=== PATIENT | female | born 1980 | race African-American/Black ===

== ENCOUNTER 2017-07-22 19:29 | Emergency (ER) | payer MEDICAID ==
[2017-07-22] MEDS ORDERED: ACETAMINOPHEN 325 MG TABLET PO ONE (19:31)
[2017-07-22 19:58] VITALS: BP 132/76
--- NOTE | 2017-07-22 20:25 | ER Document Report ---
ED Fall - General Chief Complaint: Fall Injury Stated Complaint: FALL/HIP PAIN Time Seen by Provider: 07/22/17 20:04 Mode of Arrival: Ambulatory Information source: Patient TRAVEL OUTSIDE OF THE [place] IN LAST 30 DAYS: No - HPI Patient complains to provider of: LEFT HIP PAIN Occurred: Just prior to arrival Notes: Patient is here with complaints of left hip pain. The patient states that she went into 1 of the bathrooms here at the hospital noticed that there was some water on the floor. She left the bathroom and when she went back into the bathroom there was still water on the floor causing her to slip and fall landing on her left hip area. She has has pain since. She denies striking her head. No loss of consciousness. No blood thinners. No numbness, tingling, weakness. No bowel or bladder dysfunction. No abdominal pain. No nausea, vomiting diarrhea. Patient states that her pain is worse with movement and touching the area. Better with rest. - Related data Allergies/Adverse Reactions: ampicillin [Ampicillin] Allergy (Verified 06/23/15 07:21) Penicillins Allergy (Verified 06/23/15 07:21) Past Medical History - Social History Smoking Status: Current Every Day Smoker Chew tobacco use (# tins/day): No Frequency of alcohol use: Occasional Drug Abuse: None Family History: Reviewed & Not Pertinent Patient has suicidal ideation: No Patient has homicidal ideation: No Renal/ Medical History: Denies: Hx Peritoneal Dialysis Past Surgical History: Reports: Hx Tubal Ligation - Immunizations Hx Diphtheria, Pertussis, Tetanus Vaccination: Yes Review of Systems - Review of Systems -: Yes All other systems reviewed and negative Physical Exam - Vital signs Vitals: Temp Pulse Resp BP Pulse Ox 98 F 80 36 H 132/76 H 100 07/22/17 19:55 07/22/17 19:55 07/22/17 19:55 07/22/17 19:55 07/22/17 19:55 - Notes Notes: GENERAL: alert, cooperative, nontoxic, no distress. HEAD: normocephalic, atraumatic EYES: conjunctiva pink without discharge, no external redness or swelling. EARS: no external swelling, no external redness NOSE: atraumatic, no external swelling MOUTH/THROAT: mucous membranes moist and pink, posterior pharynx without erythema, swelling, exudate. No trismus or drooling. NECK: soft, supple, full range of motion, no meningismus. CHEST: no distress, lungs clear and equal throughout. No wheezing, rales, rhonchi. CARDIAC: regular rate and rhythm, no murmur, normal capillary refill, normal pulses. No peripheral edema noted. ABDOMEN: soft, nontender, no pusatile mass. BACK: No CVA tenderness. No midline tenderness step-offs or crepitus to the palpation of the lumbar spine. EXTREMITIES: full range of motion of all extremities. No redness, no swelling. Tenderness to palpation of the left posterior hip/pelvis. NEURO: alert and oriented A&O x 3, no focal deficits, full range of motion of all extremities. 5 out of 5 flexion and extension of the lower extremities bilaterally. Patellar and Achilles deep tendon reflexes are +2 bilaterally. Normal sensation with no saddle anesthesia. Patient can dorsiflex the great toes bilaterally. PYSCH: appropriate mood, affect. Patient is cooperative. SKIN: pink, warm, dry, no rash. Course - Re-evaluation Re-evalutation: 07/22/17 21:26 Patient is nontoxic appearing with stable vitals. Patient slipped and fell in the bathroom here injuring her left hip. She has a benign exam with no neurological abnormalities. No vascular abnormalities. She did not strike her head. She denies any other injuries. States that she walked into the bathroom noticed it was wet, told someone that it needed to be cleaned up. When she went back in she slipped and fell on the wet floor. No other injuries at this time. Patient has benign exam at this time. At this point the patient will be discharged home with a prescription for Naprosyn. Instructions apply ice to sore area. Follow-up if not better in 1 week, sooner for increasing pain, fever , numbness, tingling, weakness, bowel or bladder dysfunction, or for any further concerns. The patient is noted to have elevated blood pressure during today's emergency department visit. The patient was informed of this finding. The patient was instructed that this may be related to pre-hypertension and requires further evaluation with a primary care provider. The patient has no hypertensive symptoms at this time. The patient's emergency department workup and current diagnosis were explained to the patient and or family. Follow-up instructions were provided. Medications if prescribed were discussed. Instructions for when to return to the emergency department including specific worrisome symptoms were discussed with the patient and/or family. - Vital Signs Vital signs: Temp Pulse Resp BP Pulse Ox 98 F 80 36 H 132/76 H 100 07/22/17 19:55 07/22/17 19:55 07/22/17 19:55 07/22/17 19:55 07/22/17 19:55 - Diagnostic Test Radiology reviewed: Image reviewed, Reports reviewed - Left hip x-rays negative Discharge - Discharge Clinical Impression: Contusion of left hip Qualifiers: Encounter type: initial encounter Qualified Code(s): S70.02XA - Contusion of left hip, initial encounter Condition: Stable Disposition: HOME, SELF-CARE Instructions: Contusion ([facility]) Additional Instructions: Take medications as prescribed. Apply ice to sore area. Follow-up if not better in 1 week, sooner for increasing pain, fever, numbness, tingling, weakness, any further concerns. Your blood pressure was elevated during today's visit. Have this rechecked with your doctor. Prescriptions: Naproxen [Naprosyn] 500 mg PO BID #20 tablet Forms: Elevated Blood Pressure, Smoking Cessation Education, Return to Work
--- NOTE | 2017-07-22 21:24 | RADIOLOGY REPORT (SQ) ---
EXAM DESCRIPTION: HIP LEFT AP/LATERAL COMPLETED DATE/TIME: 07/22/2017 8:59 pm REASON FOR STUDY: SLIP AND FALL COMPARISON: None. NUMBER OF VIEWS: Two views. TECHNIQUE: AP pelvis and additional frog-leg view of the left hip. LIMITATIONS: None. FINDINGS: MINERALIZATION: Normal. LEFT HIP: No fracture or dislocation. No worrisome bone lesions. RIGHT HIP: No fracture or dislocation. No worrisome bone lesions. PUBIS AND ISCHIUM: No fracture. PELVIS: No fracture. SACRUM: No fracture or dislocation. No worrisome bone lesions. LOWER LUMBAR SPINE: No fracture or dislocation. No worrisome bone lesions. No significant disc disea se. SOFT TISSUES: No findings. OTHER: No other significant finding. IMPRESSION: NEGATIVE STUDY OF THE LEFT HIP AND PELVIS. NO RADIOGRAPHIC EVIDENCE OF ACUTE INJURY. TECHNICAL DOCUMENTATION: JOB ID: [id number] [employer]- All Rights Reserved Reading location - IP/workstation name: [email or web address]
== END 2017-07-22 21:52 | disposition home or self-care (01) ==
LOC: ER 19:29
DX: S70.02XA Contusion of left hip, initial encounter (principal); F17.200 Nicotine dependence, unspecified, uncomplicated; W01.0XXA Fall on same level from slipping, tripping and stumbling without subsequent striking against object, initial encounter; Y93.E8 Activity, other personal hygiene; Y92.231 Patient bathroom in hospital as the place of occurrence of the external cause; Z88.0 Allergy status to penicillin
CPT/HCPCS: 99283; 73502; J3490

== ENCOUNTER 2017-08-04 23:39 | Emergency (ER) | payer SELFPAY ==
[2017-08-04] MEDS ORDERED: HALOPERIDOL 5 MG TABLET PO ONE (23:44)
[2017-08-04] MEDS ORDERED: LORAZEPAM 1 MG TABLET PO ONE (23:44)
[2017-08-04] MEDS ORDERED: LORAZEPAM 1 MG TABLET ONE (23:53)
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
[2017-08-05 00:06] LABS: ABSOLUTE LYMPHOCYTES (AUTO) 2.2 10^3/uL (0.5-4.7); ABSOLUTE MONOCYTES (AUTO) 0.7 10^3/uL (0.1-1.4); ABSOLUTE NEUT (AUTO) 3.3 10^3/uL (1.7-8.2); BASOPHILS % (AUTO) 0.3 % (0-2); EOSINOPHILS % (AUTO) 0.5 % (0-6); HEMATOCRIT 40.7 % (36.0-47.0); HEMOGLOBIN 13.8 g/dL (12.0-15.5); LYMPHOCYTES % (AUTO) 35.1 % (13-45); MEAN CORPUSCULAR HEMOGLOBIN 30.1 pg (27.0-33.4); MEAN CORPUSCULAR HGB CONC 33.9 g/dL (32.0-36.0); MEAN CORPUSCULAR VOLUME 89 fl (80-97); MONOCYTES % (AUTO) 11.2 % (3-13); PLATELET COUNT 117 10^3/uL (150-450); RED BLOOD COUNT 4.59 10^6/uL (3.72-5.28); RED CELL DISTRIBUTION WIDTH 13.1 % (11.5-14.0); SEGMENTED NEUTROPHILS % (AUTO) 52.9 % (42-78); TOTAL CELLS COUNTED % (AUTO) 100 %; WHITE BLOOD COUNT 6.2 10^3/uL (4.0-10.5)
[2017-08-05 00:26] LABS: ALANINE AMINOTRANSFERASE 25 U/L (9-52); ALCOHOL 226 mg/dL (NONE DETECTED); ALKALINE PHOSPHATASE 52 U/L (38-126); ASPARTATE AMINO TRANSFERASE 22 U/L (14-36); BILIRUBIN,DIRECT 0.3 mg/dL (0.0-0.4); BILIRUBIN,TOTAL 0.3 mg/dL (0.2-1.3); BLOOD UREA NITROGEN 9 mg/dL (7-20); CALCIUM 9.7 mg/dL (8.4-10.2); GLUCOSE 134 mg/dL (75-110); POTASSIUM 3.7 mmol/L (3.6-5.0); TOTAL PROTEIN 8.5 g/dL (6.3-8.2)
[2017-08-05 00:31] LABS: AMORPHOUS SEDIMENT,URINE TRACE /HPF; APPEARANCE,URINE SLIGHTLY-CLOUDY; BILIRUBIN,URINE NEGATIVE (NEGATIVE); COLOR,URINE STRAW; GLUCOSE, URINE NEGATIVE (NEGATIVE); KETONES,URINE NEGATIVE (NEGATIVE); LEUKOCYTE ESTERASE,URINE NEGATIVE (NEGATIVE); NITRITE,URINE NEGATIVE (NEGATIVE); PROTEIN,URINE 30 mg/dL (NEGATIVE); URINE SPECIFIC GRAVITY 1.003; UROBILINOGEN,URINE NEGATIVE mg/dL (<2.0)
[2017-08-05 00:56] LABS: ACETAMINOPHEN < 10 ug/mL (10-30); SALICYLATE < 1.0 mg/dL (2.0-20.0)
[2017-08-05 00:57] LABS: URINE AMPHETAMINES SCREEN NEGATIVE; URINE BARBITURATES SCREEN NEGATIVE; URINE BENZODIAZEPINES SCREEN NEGATIVE; URINE COCAINE SCREEN UNCONFIRMED POSITIVE; URINE MARIJUANA (THC) SCREEN UNCONFIRMED POSITIVE; URINE METHADONE SCREEN NEGATIVE; URINE PHENCYCLIDINE SCREEN NEGATIVE
[2017-08-05 01:00] LABS: ANION GAP 21 (5-19); CARBON DIOXIDE 18 mmol/L (22-30); CHLORIDE 110 mmol/L (98-107); SODIUM 148.5 mmol/L (137-145)
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
[2017-08-05 11:54] VITALS: BP 117/80
--- NOTE | 2017-08-05 20:11 | EKG REPORT ---
SEVERITY:- ABNORMAL ECG - SINUS RHYTHM CONSIDER LEFT VENTRICULAR HYPERTROPHY : Confirmed by: Hector Stephens 05-Aug-2017 20:09:48
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
== END 2017-08-05 11:55 | disposition home or self-care (01) ==
LOC: ER 23:39
DX: F10.920 Alcohol use, unspecified with intoxication, uncomplicated (principal); F19.229 Other psychoactive substance dependence with intoxication, unspecified; R45.850 Homicidal ideations; Z88.0 Allergy status to penicillin; Z98.51 Tubal ligation status
CPT/HCPCS: 36415; 80053; 80307; 81001; 84703; 85025; 93005; 93010; 99284

== ENCOUNTER 2017-10-14 09:17 | Emergency (ER) | payer SELFPAY ==
[2017-10-14 09:33] VITALS: BP 127/82
--- NOTE | 2017-10-14 10:24 | ER Document Report ---
HPI - HPI Patient complains to provider of: Vaginal discharge with an odor since yesterday Onset: Just prior to arrival Pain Level: 5 Context: 36-year-old female complaining of right-sided abdominal pain from the pelvis to the right upper quadrant with right flank pain nausea for 1 month. She states she has urinary frequency and is having to get up at night to go to the bathroom. She started having a vaginal discharge with a foul odor yesterday, but has had vaginal itching for a couple weeks. She thought maybe her right labia was swollen. No intercourse for 3 months. History of endometriosis, trichomonos, and Chlamydia about 6 months ago. No fever or chills. Hx ITP , wants to know what her platelets are. Associated Symptoms: None Exacerbated by: Denies Relieved by: Denies - ROS ROS below otherwise negative: Yes Systems Reviewed and Negative: Yes All other systems reviewed and negative - REPRODUCTIVE Reproductive: DENIES: : Past Medical History - General Information source: Patient - Social History Smoking Status: Current Every Day Smoker Frequency of alcohol use: None Drug Abuse: None Family History: Reviewed & Not Pertinent Renal/ Medical History: Reports: Other - Endometriosis, chlamydia, trichomonas. Denies: Hx Peritoneal Dialysis Surgical Hx: Negative Past Surgical History: Reports: Hx Tubal Ligation - Immunizations Hx Diphtheria, Pertussis, Tetanus Vaccination: Yes Vertical Provider Document - CONSTITUTIONAL Agree With Documented VS: Yes Exam Limitations: No Limitations General Appearance: No Apparent Distress - INFECTION CONTROL TRAVEL OUTSIDE OF THE [place] IN LAST 30 DAYS: No - HEENT HEENT: Normal ENT Exam - NECK Neck: Supple - RESPIRATORY Respiratory: Breath Sounds Normal, No Respiratory Distress - CARDIOVASCULAR Cardiovascular: Regular Rate, Regular Rhythm - GI/ABDOMEN Gastrointestinal: Abdomen Soft, Abdomen Tender - Right pelvis to the right upper quadrant, no specific McBurney's point tenderness, - REPRODUCTIVE Female Genitalia: Normal Inspection - BACK Back: Normal Inspection, CVA Tenderness-Right - MUSCULOSKELETAL/EXTREMETIES Musculoskeletal/Extremeties: NIKUNJ PALENCIA - NEURO Level of Consciousness: Alert Course - Re-evaluation Re-evalutation: 10/14/17 trichomonas and BV on wet prep, offered to tx for possible gonorrhea and chlamydia pending cx and she wants to be treated. 10/14/17 pt called back advised her to have partner tx for trich, gc and chlam were negative. - Vital Signs Vital signs: Temp Pulse Resp BP Pulse Ox 97.5 F 73 16 127/82 H 73 L 10/14/17 09:31 10/14/17 09:31 10/14/17 09:31 10/14/17 09:31 10/14/17 09:31 - Laboratory Result Diagrams: 10/14/17 11:10 10/14/17 11:10 Discharge - Discharge Clinical Impression: Bacterial vaginosis, trichomonas, Abdominal pain, Chronic idiopathic thrombocytopenia Condition: Good Disposition: HOME, SELF-CARE Instructions: Abdominal Pain ([facility]), Azithromycin ([facility]), Rocephin ([facility]), Trichomonas Infection ([facility]), Vaginosis, Bacterial ([facility]) Additional Instructions: Metronidazole is for bacterial vaginosis and trichomonas, do not drink alcohol when you take this medication You were treated for possible gonorrhea with Rocephin and treated for possible chlamydia with azithromycin Do not douche Call me in 3 hours for the gonorrhea and Chlamydia test at [phone], as your sexual partner may need to be treated Return to the emergency room if this abdominal pain gets worse, new symptoms or fever vomiting or diarrhea Your platelet count is 90,000 which is mildly low. Do not take any Motrin or aspirin Prescriptions: Metronidazole 500 mg PO BID #14 tablet Forms: Return to Work
[2017-10-14] MEDS ORDERED: ACETAMINOPHEN 325 MG TABLET PO ONE (10:43)
[2017-10-14 11:05] LABS: APPEARANCE,URINE SLIGHTLY-CLOUDY; BILIRUBIN,URINE NEGATIVE (NEGATIVE); COLOR,URINE YELLOW; GLUCOSE, URINE NEGATIVE (NEGATIVE); KETONES,URINE NEGATIVE (NEGATIVE); LEUKOCYTE ESTERASE,URINE SMALL (NEGATIVE); NITRITE,URINE NEGATIVE (NEGATIVE); PROTEIN,URINE NEGATIVE (NEGATIVE)
[2017-10-14 11:20] LABS: BACTERIA (WET MOUNT) 4+ BACTERIA SEEN; EPITHELIALS (WET MOUNT) 4+ EPITHELIALS SEEN; RBCS (WET MOUNT) FEW RBCS SEEN; T.VAGINALIS (WET MOUNT) TRICHOMONAS SEEN; WBCS (WET MOUNT) FEW WBCS SEEN; YEAST (WET MOUNT) NO YEAST SEEN
[2017-10-14 11:39] LABS: ALANINE AMINOTRANSFERASE 21 U/L (9-52); ALKALINE PHOSPHATASE 46 U/L (38-126); ANION GAP 10 (5-19); ASPARTATE AMINO TRANSFERASE 16 U/L (14-36); BILIRUBIN,DIRECT 0.2 mg/dL (0.0-0.4); BILIRUBIN,TOTAL 0.5 mg/dL (0.2-1.3); BLOOD UREA NITROGEN 11 mg/dL (7-20); CALCIUM 8.6 mg/dL (8.4-10.2); CARBON DIOXIDE 27 mmol/L (22-30); CHLORIDE 106 mmol/L (98-107); GLUCOSE 91 mg/dL (75-110); POTASSIUM 3.7 mmol/L (3.6-5.0); SODIUM 142.9 mmol/L (137-145); TOTAL PROTEIN 7.2 g/dL (6.3-8.2)
[2017-10-14] MEDS ORDERED: CEFTRIAXONE INJ 250 MG VIAL IM ONE (11:41)
[2017-10-14] MEDS ORDERED: AZITHROMYCIN 250 MG TABLET PO ONE (11:41)
[2017-10-14] MEDS ORDERED: ONDANSETRON 4 MG TAB.RAPDIS PO ONE (11:41)
[2017-10-14] MEDS ORDERED: LIDOCAINE 1% INJ-PF (10 MG/ML) 30 ML SDV INJ ONE (11:42)
[2017-10-14 11:45] LABS: ABSOLUTE LYMPHOCYTES (AUTO) 1.4 10^3/uL (0.5-4.7); ABSOLUTE MONOCYTES (AUTO) 0.3 10^3/uL (0.1-1.4); ABSOLUTE NEUT (AUTO) 1.8 10^3/uL (1.7-8.2); BASOPHILS % (AUTO) 0.3 % (0-2); EOSINOPHILS % (AUTO) 1.4 % (0-6); HEMATOCRIT 39.1 % (36.0-47.0); HEMOGLOBIN 13.4 g/dL (12.0-15.5); LYMPHOCYTES % (AUTO) 39.4 % (13-45); MEAN CORPUSCULAR HEMOGLOBIN 30.1 pg (27.0-33.4); MEAN CORPUSCULAR HGB CONC 34.2 g/dL (32.0-36.0); MEAN CORPUSCULAR VOLUME 88 fl (80-97); MONOCYTES % (AUTO) 9.5 % (3-13); RED BLOOD COUNT 4.45 10^6/uL (3.72-5.28); RED CELL DISTRIBUTION WIDTH 13.1 % (11.5-14.0); SEGMENTED NEUTROPHILS % (AUTO) 49.4 % (42-78); TOTAL CELLS COUNTED % (AUTO) 100 %; WHITE BLOOD COUNT 3.6 10^3/uL (4.0-10.5)
[2017-10-14 12:10] LABS: PLATELET COUNT 90 10^3/uL (150-450)
[2017-10-14 12:40] LABS: CHLAM PCR NOT DETECTED (NOT DETECT); GON PCR NOT DETECTED (NOT DETECT)
== END 2017-10-14 12:32 | disposition home or self-care (01) ==
LOC: ER 09:17
DX: N76.0 Acute vaginitis (principal); B96.89 Other specified bacterial agents as the cause of diseases classified elsewhere; A59.00 Urogenital trichomoniasis, unspecified; D69.3 Immune thrombocytopenic purpura; R35.0 Frequency of micturition; F17.200 Nicotine dependence, unspecified, uncomplicated
CPT/HCPCS: 99283; 96372; 36415; 87086; 87210; 85025; 81025; 80053; 81001; 87491; 87591; S0119; J0696

== ENCOUNTER 2018-06-18 22:38 | Emergency (ER) | payer SELFPAY ==
[2018-06-19] MEDS ORDERED: BENZONATATE 100 MG CAPSULE PO ONE (01:53)
[2018-06-19] MEDS ORDERED: ALBUTEROL SULFATE HFA (90 MCG/PUFF) 8 GM MDI (1 MDI/ER DISP) IH ONE (02:17)
[2018-06-19] MEDS ORDERED: PREDNISONE 20 MG TABLET PO ONE (02:17)
--- NOTE | 2018-06-19 02:22 | ER Document Report ---
HPI - HPI Patient complains to provider of: Cough, congestion Time Seen by Provider: 06/19/18 02:07 Pain Level: 3 Context: Patient is a 37-year-old female that comes to the emergency department for chief complaint of 3 days of cough, congestion, and some sore throat. She denies fever chills, difficulty breathing. She states that 2 days ago she coughed until she threw up but she has not done this again. She does smoke. She denies history of COPD or asthma. She denies any daily medications or diagnosed medical problems. - CONSTITUTIONAL Constitutional: DENIES: Fever, Chills - EENT EENT: DENIES: Sore Throat, Ear Pain, Eye problems - NEURO Neurology: DENIES: Headache, Weakness, Vision blurred, Dizzinesss / Vertigo - CARDIOVASCULAR Cardiovascular: DENIES: Chest pain - RESPIRATORY Respiratory: DENIES: Trouble Breathing, Coughing - GASTROINTESTINAL Gastrointestinal: DENIES: Abdominal Pain, Black / Bloody Stools - URINARY Urinary: DENIES: Dysuria, Urgency, Frequency - REPRODUCTIVE Reproductive: DENIES: :, Postmenopausal, Abnormal bleeding / discharge - MUSCULOSKELETAL Musculoskeletal: DENIES: Extremity pain Past Medical History - General Information source: Patient - Social History Smoking Status: Current Every Day Smoker Chew tobacco use (# tins/day): No Smoking Education Provided: Yes - <3 min Frequency of alcohol use: None Drug Abuse: None Lives with: Family Family History: Reviewed & Not Pertinent Patient has suicidal ideation: No Patient has homicidal ideation: No Renal/ Medical History: Denies: Hx Peritoneal Dialysis Past Surgical History: Reports: Hx Tubal Ligation - Immunizations Hx Diphtheria, Pertussis, Tetanus Vaccination: Yes Vertical Provider Document - CONSTITUTIONAL General Appearance: WD/WN, No Apparent Distress - INFECTION CONTROL TRAVEL OUTSIDE OF THE [place] IN LAST 30 DAYS: No - HEENT HEENT: negative: Normal ENT Exam - Very congested nasal turbinates with some rhinorrhea. No tenderness noted over the sinuses. Oral pharyngeal exam is unremarkable with no tonsillar swelling or exudates. Normal uvula with clear airway. Unremarkable ear exams. - NECK Neck: Normal Inspection. negative: Lymphadenopathy-Left, Lymphadenopathy-Right - RESPIRATORY Respiratory: Other - No wheezing, respiratory distress, rales, rhonchi. Patient does have congested coughing episodes which are intermittent. - CARDIOVASCULAR Cardiovascular: Regular Rate, Regular Rhythm - GI/ABDOMEN Gastrointestinal: Abdomen Soft, Abdomen Non-Tender - BACK Back: Normal Inspection - MUSCULOSKELETAL/EXTREMETIES Musculoskeletal/Extremeties: MAEW, FROM, Non-Tender - NEURO Level of Consciousness: Awake, Alert, Appropriate - DERM Integumentary: Warm, Dry, No Rash Course - Re-evaluation Re-evalutation: Patient has sinus congestion, some postnasal drip, and congested cough. No fever, hypoxia, or signs of distress. She is a smoker. Discussed smoking cessation. Patient on prednisone, provided with albuterol inhaler and spacer, provided with [id number] medications for her sinus congestion. Discussed follow-up, discussed return precautions. Patient states understanding and agreement. - Vital Signs Vital signs: Temp Pulse Resp BP Pulse Ox 97.2 F 80 16 122/87 H 99 06/18/18 22:57 06/18/18 22:57 06/18/18 22:57 06/18/18 22:57 06/18/18 22:57 Discharge - Discharge Clinical Impression: Sinus congestion, Productive cough Condition: Stable Disposition: HOME, SELF-CARE Additional Instructions: Your evaluation is consistent with most likely allergic sinus congestion and now developing bronchitis. Take prednisone as prescribed, use the decongestant and antiallergy as prescribed. I also recommend a Neti Pot for your sinuses. Symptoms of upper respiratory congestion can last for a long time, even after weeks. However you should begin improving and not worsen. Follow-up with primary care. If you do worsen (fevers, difficulty breathing, etc.) return to the emergency department. Prescriptions: Fluticasone Propionate [Flonase Nasal Willow 50 Mcg/Willow 16 gm] 2 sprays NASL Q12 #1 inhaler Prednisone [Deltasone 20 mg Tablet] 2 tab PO DAILY 5 Days #10 tablet Pseudoephedrine HCl [Sudafed 12 Hour] 120 mg PO Q12 PRN #14 tablet.er PRN Reason: Forms: Return to Work
[2018-06-19 02:42] VITALS: BP 119/84
== END 2018-06-19 02:42 | disposition home or self-care (01) ==
LOC: ER 22:38
DX: R05 Cough (principal); R09.81 Nasal congestion; J34.89 Other specified disorders of nose and nasal sinuses; F17.200 Nicotine dependence, unspecified, uncomplicated
CPT/HCPCS: 99283; J7512; J3490

== ENCOUNTER 2018-11-12 09:35 | Emergency (ER) | payer SELFPAY ==
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
[2018-11-12] MEDS ORDERED: ACETAMINOPHEN 325 MG TABLET PO ONE (10:33)
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
[2018-11-12 12:19] VITALS: BP 125/75
== END 2018-11-12 12:19 | disposition home or self-care (01) ==
LOC: ER 09:35
DX: S09.22XA Traumatic rupture of left ear drum, initial encounter (principal); S09.90XA Unspecified injury of head, initial encounter; H91.92 Unspecified hearing loss, left ear; H53.8 Other visual disturbances; R51 Headache; M54.2 Cervicalgia; H92.02 Otalgia, left ear; H53.149 Visual discomfort, unspecified; H57.12 Ocular pain, left eye; Y04.2XXA Assault by strike against or bumped into by another person, initial encounter; F17.200 Nicotine dependence, unspecified, uncomplicated; Z87.81 Personal history of (healed) traumatic fracture; Z87.892 Personal history of anaphylaxis; Z88.0 Allergy status to penicillin
CPT/HCPCS: 70450; 70486; 72125; 99283